=== PATIENT | female | born 1960 | race Caucasian/White ===

== ENCOUNTER 2019-09-28 16:59 | Emergency (ER) | payer MEDICARE, MEDICAID ==
--- NOTE | 2019-09-28 17:21 | ED ---
Dizziness - HPI Summary HPI Summary: Patient complains of sudden onset severe dizziness starting at 11 AM. Event lasted 10 minutes, and patient states she fell due to dizziness. Denies injury from fall. Episode resolved, followed by second episode a few hours later. Again episode lasted for a few minutes and resolved. No active symptoms at this time. Patient denies prior history of same, any symptoms of illness, vision change, headache, N/V, altered mental status, unilateral weakness, trauma , CP, SOB, abdominal pain, urine symptoms, change in BM. Medical history is anxiety, HDL. BGL 68 per EMS. - History Of Current Complaint Stated Complaint: DIZZY Hx Obtained From: Patient Onset/Duration: Resolved Timing: Minutes Severity Initially: Moderate Severity Currently: None Character: Room Spinning Associated Signs And Symptoms: Positive: Nausea, Unsteady Gait. Negative: Vomiting, Diaphoresis, Chest Pain, SOB, Visual Changes, Slurred Speech - Allergies/Home Medications Allergies/Adverse Reactions: Allergies Allergy/AdvReac Type Severity Reaction Status Date / Time chlorhexidine Allergy Intermediate Rash Verified 09/28/19 17:37 Home Medications: Home Medications clonazePAM TAB(*) [Klonopin TAB(*)] 0.5 mg PO TID PRN 12/08/14 [History Confirmed 09/28/19] Acetaminophen [Acetaminophen Extra Strength] 1,000 mg PO TID 09/28/19 [History Confirmed 09/28/19] DULoxetine DR CAP* [Cymbalta CAP*] 60 mg PO DAILY 09/28/19 [History Confirmed ] Meclizine TAB* [Antivert 12.5 TAB*] 25 mg PO TID PRN 10 Days #30 tab 09/28/19 [ Rx] Rosuvastatin (NF) [Crestor (NF)] 5 mg PO BEDTIME 09/28/19 [History Confirmed 06/08] PMH/Surg Hx/FS Hx/Imm Hx Endocrine/Hematology History: Denies: Hx Diabetes, Hx Thyroid Disease Cardiovascular History: Denies: Hx Deep Vein Thrombosis, Hx Hypertension Respiratory History: Denies: Hx Asthma, Hx Chronic Obstructive Pulmonary Disease (COPD) GI History: Reports: Hx Irritable Bowel - Hx OF , NOT CURRENT Denies: Hx Ulcer History: Denies: Hx Dialysis Musculoskeletal History: Reports: Hx Arthritis - HANDS, Hx Bursitis - LEFT THIGH Sensory History: Reports: Hx Contacts or Glasses - READING Opthamlomology History: Reports: Hx Contacts or Glasses - READING EENT History: Denies: Hx Deafness Psychiatric History: Reports: Hx Anxiety - ON DAILY MEDS, Hx Depression Denies: Hx Eating Disorder, Hx of Violent Episodes Against Others - Cancer History Hx Chemotherapy: No Hx Radiation Therapy: No - Surgical History Surgery Procedure, Year, and Place: 12/2013 APPENDECTOMY [facility]. 1984 BILATERAL TUBAL LIGATION [facility]. 1968 ANTERIOR NECK AREA, CYST REMOVED ROSALINE Hx Anesthesia Reactions: No Infectious Disease History: No Infectious Disease History: Denies: Hx Hepatitis, Hx Human Immunodeficiency Virus (HIV), Traveled Outside the [place] in Last 30 Days - Family History Known Family History: Positive: Diabetes, Other - positive FHx for URI - Social History Alcohol Use: None Hx Substance Use: No Substance Use Type: Reports: None Hx Tobacco Use: Yes Smoking Status (MU): Former Smoker Type: Cigarettes Amount Used/How Often: 1PPD 35 YRS - QUIT 8 DAYS AGO Length of Time of Smoking/Using Tobacco: 35 YRS Have You Smoked in the Last Year: Yes Review of Systems Constitutional: Negative Eyes: Negative ENT: Negative Cardiovascular: Negative Respiratory: Negative Gastrointestinal: Negative Genitourinary: Negative Musculoskeletal: Negative Skin: Negative Neurological/Mental Status: Negative Psychological: Normal All Other Systems Reviewed And Are Negative: Yes Physical Exam - Summary Physical Exam Summary: Neuro exam normal. Patient ambulating normally. No reproduction of symptoms with head movement. Speech normal. Patient at baseline per patient and friend. Triage Information Reviewed: Yes Vital Signs On Initial Exam: Initial Vitals Temp Pulse Resp BP Pulse Ox 99.1 F 66 15 125/79 96 09/28/19 17:06 09/28/19 17:06 09/28/19 17:06 09/28/19 17:06 09/28/19 17:06 Vital Signs Reviewed: Yes Appearance: Positive: Well-Appearing Skin: Positive: Warm Head/Face: Positive: Normal Head/Face Inspection Eyes: Positive: Normal ENT: Positive: Normal ENT inspection Neck: Positive: Supple Respiratory/Lung Sounds: Positive: Clear to Auscultation Cardiovascular: Positive: Normal Abdomen Description: Positive: Nontender Musculoskeletal: Positive: Normal Neurological: Positive: Normal Psychiatric: Positive: Normal AVPU Assessment: Alert - Guido Coma Scale Best Eye Response: 4 - Spontaneous Best Motor Response: 6 - Obeys Commands Best Verbal Response: 5 - Oriented Coma Scale Total: 15 Procedures - Sedation Patient Received Moderate/Deep Sedation with Procedure: No Diagnostics - Vital Signs Vital Signs Temp Pulse Resp BP Pulse Ox 09/28/19 17:06 99.1 F 66 15 125/79 96 - Laboratory Result Diagrams: 09/28/19 17:59 09/28/19 17:59 Lab Statement: Any lab studies that have been ordered have been reviewed, and results considered in the medical decision making process. Dizzy Course/Dx - Course Course Of Treatment: Patient complains of sudden onset severe dizziness starting at 11 AM. Event lasted 10 minutes, and patient states she fell due to dizziness. Denies injury from fall. Episode resolved, followed by second episode a few hours later. Again episode lasted for a few minutes and resolved. No active symptoms at this time. Patient denies prior history of same, any symptoms of illness, vision change, headache, N/V, altered mental status, unilateral weakness, trauma, CP, SOB, abdominal pain, urine symptoms, change in BM. Medical history is anxiety, HDL. BGL 68 per EMS. Vital signs within normal limits. Labs unremarkable. CT brain negative. Intermittent brief episodes of dizziness here in the ED. Resolved with meclizine. EKG sinus rhythm, heart rate 65, normal axis. Urine negative. - Diagnoses Provider Diagnoses: Dizziness Discharge ED - Sign-Out/Discharge Documenting (check all that apply): Patient Departure - Discharge Plan Condition: Stable Disposition: HOME Prescriptions: Meclizine TAB* [Antivert 12.5 TAB*] 25 mg PO TID PRN 10 Days #30 tab PRN Reason: Dizziness Patient Education Materials: Benign Paroxysmal Positional Vertigo (ED) Referrals: Yuan Tobar MD [Primary Care Provider] - Additional Instructions: Take meclizine as directed. Symptoms should resolve in 10-14 days. Follow-up with primary care. Return to the ED for any new or worsening symptoms. - Billing Disposition and Condition Condition: STABLE Disposition: Home - Attestation Statements Provider Attestation: I was available for consult. This patient was seen by the [facility]. The patient was not presented to, seen by, or examined by me. Hipolito Uriarte MD
[2019-09-28 18:04] LABS: ABS Eosinophils 0.1 10^3/ul (0-0.6); ABS Lymphocytes 1.8 10^3/ul (1.0-4.8); ABS Monocytes 0.6 10^3/ul (0-0.8); ABS Neutrophils 6.5 10^3/ul (1.5-7.7); Eosinophil % 0.8 %; Hematocrit 43 % (35-47); Hemoglobin 14.5 g/dL (12.0-16.0); Lymphocyte % 20.2 %; Mean Corpuscular HGB Conc 34 g/dL (31-36); Mean Corpuscular Hemoglobin 29 pg (27-31); Mean Corpuscular Volume 86 fL (80-97); Mean Platelet Volume 7.6 fL (7.4-10.4); Platelet Count 203 10^3/uL (150-450); Red Blood Count 4.94 10^6 /uL (3.70-4.87); Red Cell Distribution Width 13 % (10-15)
[2019-09-28] MEDS ORDERED: Ondansetron ODT TAB* 4 MG PO ONE (18:18)
[2019-09-28] MEDS ORDERED: Meclizine TAB* 12.5 MG PO ONE (18:18)
[2019-09-28 18:22] LABS: Albumin 4.3 g/dL (3.2-5.2); Albumin/Globulin Ratio 1.5 (1-3); BUN/Creatinine Ratio 17.9 (8-20); C Reactive Protein 5.13 mg/L (<8.01); Calcium 10.3 mg/dL (8.6-10.3); EGFR Non-African American 90.1 (>60); Globulin 2.9 g/dL (2-4); Potassium 4.2 mmol/L (3.5-5.0); Total Bilirubin 0.3 mg/dL (0.2-1.0); Total Protein 7.2 g/dL (6.4-8.9)
[2019-09-28 19:04] LABS: TSH (Thyroid Stimulating Horm) 0.89 mcIU/mL (0.34-5.60)
[2019-09-28 19:12] LABS: Urine Appearance Clear; Urine Bilirubin Negative (Negative); Urine Blood Negative (Negative); Urine Color Yellow; Urine Glucose Negative (Negative); Urine Ketones Negative (Negative); Urine Nitrite Negative (Negative); Urine Protein Negative (Negative); Urine Specific Gravity 1.013 (1.010-1.030); Urine Urobilinogen Negative (Negative)
[2019-09-28 21:08] VITALS: BP 120/83
== END 2019-09-28 21:00 | disposition home or self-care (01) ==
LOC: ED 16:59
DX: R42 Dizziness and giddiness (principal); F41.9 Anxiety disorder, unspecified; E78.5 Hyperlipidemia, unspecified; Z79.899 Other long term (current) drug therapy; Z87.891 Personal history of nicotine dependence
CPT/HCPCS: 36415; 70450; 80053; 81003; 84443; 85025; 86140; 93005; 99283; A9270-GY